=== PATIENT | female | born 1925 | race Caucasian/White ===

== ENCOUNTER 2017-07-31 14:37 | Inpatient (IN) | payer MEDICARE ==
[~2017-07-31] VITALS: Ht 154.9 cm; Wt 67.8 kg
[2017-07-31 15:19] LABS: BASOPHILS % (AUTO) 0.3 % (0.0-2.0); EOSINOPHILS # (AUTO) 0.2 /CMM (0.0-0.7); EOSINOPHILS % (AUTO) 3.2 % (0.0-6.0); HEMATOCRIT 40 % (33-45); HEMOGLOBIN 13.6 g/dL (11.5-14.8); LYMPHOCYTES # (AUTO) 1.6 /CMM (0.8-4.8); LYMPHOCYTES % (AUTO) 26.4 % (20.0-44.0); MEAN CORPUSCULAR HEMOGLOBIN 30 PG (26.0-33.0); MEAN CORPUSCULAR HGB CONC 34 g/dl (31.0-36.0); MEAN CORPUSCULAR VOLUME 88 fL (82-100); MONOCYTES # (AUTO) 0.5 /CMM (0.1-1.30); MONOCYTES % (AUTO) 8.6 % (2.0-12.0); NEUTROPHILS # (AUTO) 3.7 /CMM (1.8-8.9); NEUTROPHILS % (AUTO) 61.5 % (43.0-81.0); PLATELET COUNT (AUTO) 231 /CMM (150-450); RDW COEFFICIENT OF VARIATION 12.5 (11.5-15.0); RED BLOOD CELL COUNT(AUTO) 4.52 MIL/uL (4.0-5.2)
[2017-07-31] MEDS ORDERED: ASPIRIN 325 MG TABLET PO ONE (15:30)
[2017-07-31 15:31] LABS: CALCIUM, SERUM 8.7 mg/dL (8.5-10.1); CARBON DIOXIDE 26 mmol/L (21-32); CHLORIDE 104 mmol/L (98-107); CREATININE 0.8 mg/dL (0.6-1.3); GLUCOSE 89 mg/dL (74-106); SODIUM SERUM 137 mmol/L (136-145); UREA NITROGEN, BLOOD 21 mg/dL (7-18)
--- NOTE | 2017-07-31 15:31 | NUR ---
PT REC'D TO ER WITH MULTIPLE CO BACK FELING [facility] HEART IV STARTED 20 RT AC LABS DRAWN SENT TO LAB AWAITING EVALUATION BY ER PROVIDER.
--- NOTE | 2017-07-31 15:33 | NUR ---
PT GIVEN ASA 325 MG PO
[2017-07-31 15:42] LABS: TROPONIN I < 0.017 ng/mL (0.00-0.056)
[2017-07-31 15:43] LABS: INR 0.9 (0.87-1.13); PROTHROMBIN TIME 9.4 SECS (9.5-12.7)
[2017-07-31 15:45] LABS: B-TYPE NATRIURETIC PEPTIDE 177 PG/ML (0-125)
[2017-07-31] MEDS ORDERED: ASPIRIN 325 MG TABLET ONE (16:00)
--- NOTE | 2017-07-31 17:14 | NUR ---
PAGED DR PANCHAL, CIGARETTE TESTER FOR PANEL.
[2017-07-31] MEDS ORDERED: ONDANSETRON HCL/PF 4 MG/2 ML VIAL IVP PRN (18:00)
[2017-07-31] MEDS ORDERED: Z GUARD REMEDY 2 OZ OINT TP PRN (18:00)
[2017-07-31] MEDS ORDERED: MAG HYDROX/AL HYDROX/SIMETH 30 ML UDC PO PRN (18:00)
[2017-07-31] MEDS ORDERED: ZOLPIDEM TARTRATE 5 MG TABLET PO PRN (18:00)
[2017-07-31] MEDS ORDERED: HYDROCODONE/APAP 5/325MG 1 EACH TABLET PO PRN (18:00)
[2017-07-31] MEDS ORDERED: MAGNESIUM HYDROXIDE 30 ML UDC PO PRN (18:00)
[2017-07-31] MEDS ORDERED: ACETAMINOPHEN 325 MG TABLET PO PRN (18:00)
--- NOTE | 2017-07-31 18:15 | NUR ---
PT STABLE FOR TRANSFER TO TELE REPORT CALLED TO FLOOR
--- NOTE | 2017-07-31 18:40 | NUR ---
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 A/O X 4. NO SIGNS OF ACUTE DISTRESS. NO COMPLAIN OF PAIN OR DISCOMFORT. DIAGNOSIS OF CHEST PAIN AND PLEURAL EFFUSION. ON ROOM AIR, WITH O2 SAT OF 98%. ON TELE MONITOR WITH SR 60'S. AMBULATES WITH ASSIST. CONTINENT OF BOWEL AND BLADDER. ALL NEEDS ATTENDED TO. CALL LIGHT WITHIN REACH. WILL ENDORSE TO NEXT SHIFT FOR CONTINUITY OF CARE.
[2017-07-31 18:43] VITALS: BP 145/77
--- NOTE | 2017-07-31 19:30 | NUR ---
RN OPENING NOTES PATIENT IS IN BED, A/O X 4. VS STABLE. NO C/O OF PAIN THIS TIME. RESPIRATIONS EVEN AND UNLABORED.ON TELE MONITOR WITH SR 72. IV ACCESS ON RIGHT AC PATENT AND INTACT. NO REDNESS OR INFILTRATION NOTED. BED IN LOW AND LOCKED POSITION. CALL LIGHT WITHIN EASY REACH. WILL CONTINUE MONITOR AND ASSESS DURING THE SHIFT.
[2017-07-31 20:08] VITALS: BP 135/68
[2017-07-31] MEDS ORDERED: ATORVASTATIN 40 MG TABLET PO SCH (22:00)
[2017-07-31] MEDS ORDERED: ALBUTEROL FS 2.5 MG/3 ML VIAL.NEB NEB PRN (22:00)
[2017-07-31] MEDS ORDERED: ATORVASTATIN 40 MG TABLET ONE (22:39)
[2017-08-01] VITALS: BP 145/71
[2017-08-01 04:00] VITALS: BP 156/72
[2017-08-01 06:39] LABS: BASOPHILS % (AUTO) 0.1 % (0.0-2.0); EOSINOPHILS # (AUTO) 0.2 /CMM (0.0-0.7); EOSINOPHILS % (AUTO) 4.3 % (0.0-6.0); HEMATOCRIT 40 % (33-45); HEMOGLOBIN 13.5 g/dL (11.5-14.8); LYMPHOCYTES # (AUTO) 1.6 /CMM (0.8-4.8); LYMPHOCYTES % (AUTO) 35.6 % (20.0-44.0); MEAN CORPUSCULAR HEMOGLOBIN 30 PG (26.0-33.0); MEAN CORPUSCULAR HGB CONC 33 g/dl (31.0-36.0); MEAN CORPUSCULAR VOLUME 90 fL (82-100); MONOCYTES # (AUTO) 0.5 /CMM (0.1-1.30); MONOCYTES % (AUTO) 10.6 % (2.0-12.0); NEUTROPHILS # (AUTO) 2.3 /CMM (1.8-8.9); NEUTROPHILS % (AUTO) 49.4 % (43.0-81.0); PLATELET COUNT (AUTO) 219 /CMM (150-450); RDW COEFFICIENT OF VARIATION 13.8 (11.5-15.0); RED BLOOD CELL COUNT(AUTO) 4.49 MIL/uL (4.0-5.2); WHITE BLOOD COUNT (AUTO) 4.6 K/uL (4.3-11.0)
--- NOTE | 2017-08-01 06:41 | NUR ---
RN CLOSING NOTES PATIENT IS SLEEPING IN BED. VS STABLE. NO SOB NOTED. RESPIRATIONS EVEN AND UNLABORED.ON TELE MONITOR WITH SR 64. IV ACCESS ON RIGHT AC PATENT AND INTACT. NO REDNESS OR INFILTRATION NOTED. PATIENT REFUSED MEDICATIONS. BED IN LOW AND LOCKED POSITION. CALL LIGHT WITHIN EASY REACH. WILL ENDORSE TO RN DAY SHIFT FOR CONTINUITY OF CARE..
[2017-08-01 06:50] LABS: CALCIUM, SERUM 8.7 mg/dL (8.5-10.1); CARBON DIOXIDE 27 mmol/L (21-32); CHLORIDE 107 mmol/L (98-107); CREATININE 0.8 mg/dL (0.6-1.3); GLUCOSE 82 mg/dL (74-106); MAGNESIUM 1.9 mg/dL (1.8-2.4); PHOSPHORUS 3.7 mg/dL (2.5-4.9); POTASSIUM 4.3 mmol/L (3.5-5.1); SODIUM SERUM 143 mmol/L (136-145); UREA NITROGEN, BLOOD 18 mg/dL (7-18)
[2017-08-01 07:04] LABS: CHOLESTEROL 184 mg/dL (<200); HDL CHOLESTEROL 83 mg/dL (40-60); LDL 98 mg/dL (0-99); THYROID STIMULATING HORMONE 3.937 uIU/mL (0.358-3.74); TRIGLYCERIDES 34 mg/dL (30-150)
--- NOTE | 2017-08-01 07:43 | NUR ---
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 ON ROOM AIR SATING AT 99%. ON TELE MONITORING SR AT 65 BPM. AMBULATORY WITH ASSIST. SKIN INTACT. ON CARDIAC DIET. R AC# 20 HL. SITE CLEAR AND PATENT. NO SOB NOTED. NO DISTRESS NOTED. NO PAIN NOTED. NO CHEST PAIN OR HEADACHE NOTED. RESTING COMFORTABLY IN BED. CALL LIGHT WITHIN REACH.
[2017-08-01 08:00] VITALS: BP 154/88
[2017-08-01] MEDS ORDERED: ASPIRIN 81 MG TAB.CHEW PO SCH (09:00)
--- NOTE | 2017-08-01 13:18 | NUR ---
MS RN: DISCHARGE NOTE PT DISCHARGED HOME WITH SELF CARE. A/OX4. TOOK ALL MEDICATIONS ON TIME. NO ADVERSE REACTIONS NOTED. NO PAIN NOTED. NO SOB NOTED. NO CHEST PAIN NOTED. AMBULATED WITH OUT ASSISTANCE. R AC #18 REMOVED. SITE CLEAR. NO REDNESS. NO BLEEDING NOTED. INFORMED PT TO FOLLOW UP WITH MD RANGEL ON ONE WEEK. ALL DISCHARGE SUMMARY PRINTED AND SIGNED BY PATIENT. ALL VALUABLES ACCOUNTED FOR. VALUABLES PAPER SIGNED. LEFT HOSPITAL AMBULATORY AND VIA PRIVATE CAR WITH FRIEND.
== END 2017-08-01 13:15 | disposition home or self-care (01) | DRG 206 ==
LOC: ER 14:39 → TELE 17:25 → MED 08-01 12:37
PROVIDERS: ADMIT Internal Medicine; ATTEND Internal Medicine
DX: M94.0 Chondrocostal junction syndrome [Tietze] (principal); J90 Pleural effusion, not elsewhere classified; M41.9 Scoliosis, unspecified; I70.0 Atherosclerosis of aorta; M19.90 Unspecified osteoarthritis, unspecified site; E78.5 Hyperlipidemia, unspecified
CPT/HCPCS: 36415; 71010-TC; 80048-TC; 80061-TC; 83735-TC; 83880; 84100-TC; 84443-TC; 84484-TC; 85025-TC; 85730-TC; 87081-TC; 93307-TC; 93970-TC; A4606; Z7610